=== PATIENT | male | born 1955 | race Caucasian/White ===

== ENCOUNTER 2019-06-05 13:52 | Emergency (ER) | payer BC ==
[~2019-06-05] VITALS: Ht 170.2 cm; Wt 99.3 kg
[~2019-06-05 13:52] MED LIST: ADULT LOW DOSE81 MG PO; CENTRUM COMPLE1 EACH PO; IBUPROFEN 600600 M1 PO
[2019-06-05 18:45] VITALS: BP 130/82
== END 2019-06-05 18:50 | disposition home or self-care (01) ==
LOC: ER 13:52
DX: S01.81XA Laceration without foreign body of other part of head, initial encounter (principal); Z88.8 Allergy status to other drugs, medicaments and biological substances; W01.198A Fall on same level from slipping, tripping and stumbling with subsequent striking against other object, initial encounter; Y93.89 Activity, other specified; Y92.89 Other specified places as the place of occurrence of the external cause; Y99.8 Other external cause status